=== PATIENT | female | born 1955 | race Caucasian/White ===

== ENCOUNTER 2018-02-24 06:08 | Day surgery (SDC) | payer OTHER ==
[2018-02-24] MEDS ORDERED: LIDOCAINE 4% SOLUTION 50 ML BTL (07:26)
[2018-02-24] MEDS ORDERED: FENTAnyl 50 MCG/ML VIAL ×2 (08:15→08:16)
[2018-02-24] MEDS ORDERED: MIDAZOLAM 1 MG/ML 2 ML INJ ×3 (08:15)
== END 2018-02-24 12:08 | disposition home or self-care (01) ==
LOC: GIL 06:08
DX: D50.9 Iron deficiency anemia, unspecified (principal); K64.4 Residual hemorrhoidal skin tags; K20.9 Esophagitis, unspecified
CPT/HCPCS: 43239; 88305; 88312; 88313